=== PATIENT | female | born 1950 | race Hispanic/Latino ===

== ENCOUNTER → 2023-03-09 | Outpatient (CLI) | payer MEDICARE ==
[~2023-03-09] MED LIST: ATORVASTATIN CA20 MG PO; COLACE100 MG PO; CYMBALTA30 MG PO; Hydrocodone/Apap 5MG-325MG PO; IBUPROFEN600 MG PO; LYRICA150 MG PO; MIRTAZAPINE15 MG PO; PANTOPRAZOLE SO40 MG PO
== END ==
LOC: RAD 08:24
PROVIDERS: ATTEND Nurse Practitioner Adult Health
DX: M25.571 Pain in right ankle and joints of right foot (principal); M06.9 Rheumatoid arthritis, unspecified; G61.81 Chronic inflammatory demyelinating polyneuritis